=== PATIENT | male | born 1985 | race Caucasian/White ===

== ENCOUNTER 2017-10-10 14:02 | Emergency (ER) | payer MEDICARE, BC ==
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
[2017-10-10] MEDS ORDERED: cefTRIAXone 1,000 MG in Lidocaine 1% 4 ML IM ONE (16:38)
--- NOTE | 2017-10-11 14:36 | CR ---
EXAM DATE: 10/10/17 PATIENT'S AGE: 32 Patient: SANDY DAILY Facility: [place], [place] Site . Site : 1985 Study: XRay Chest [id number]/7/2018 4:12:16 PM Ordering Physician: Jean Marie [place] Final Report: INDICATION: pain/sob INDICATION: Pain. Shortness of breath. COMPARISON: None. FINDINGS: AP and lateral views of the chest were obtained. The cardiac silhouette and pulmonary vasculature are within normal limits. There is elevation of the left hemidiaphragm. There is blunting the left costophrenic angle. In the right mid lung there is a patchy infiltrate with a 1 cm nodular density in the right midlung. There is evidence of previous surgery on the mid to lower thoracic spine. IMPRESSION: Patchy infiltrate right mid lung with 1 cm nodular density. This could be secondary to a pneumonia. Recommend followup films to make sure this area clears. Dictated by Alex Huerta MD @ 10/10/2017 4:29:25 PM Dictated by: Alex Huerta MD @ 10/10/2017 16:30:05 (Electronic Signature) Report Signed by Proxy. [email or web address]
== END 2017-10-10 18:00 | disposition home or self-care (01) ==
LOC: MW.ED 14:02
DX: J18.9 Pneumonia, unspecified organism (principal); Z79.899 Other long term (current) drug therapy
CPT/HCPCS: 71046; 87804; 96372; 99284; J0696; 99283